=== PATIENT | female | born 1985 | race Caucasian/White ===

== ENCOUNTER 2019-09-02 16:48 | Emergency (ER) | payer MEDICARE, OTHER ==
[~2019-09-02] VITALS: Ht 149.9 cm; Wt 114.6 kg
[2019-09-02 17:00] VITALS: BP 122/89
[2019-09-02] MEDS ORDERED: ERYT1OIN6 OP (17:15)
--- NOTE | 2019-09-02 17:15 | PHYS DOC ---
General Adult EDM: Chief Complaint: EYE PROBLEMS HPI: HPI: 34-year-old female presents with left eye erythema and irritation. This started about 3 days ago. It is only in the left eye. The patient has had increasing purulent drainage despite using warm compresses. She is also tried some ciprofloxacin drops that she had leftover from treating previous styes. It has not improved. Patient has seasonal allergies but only her left eye is affected. She denies fever chills. [place] from [place] help [place] friend. Review of Systems: Review of Systems: Constitutional: Denies fever or chills Eyes: Irritated left eye HENT: Denies nasal congestion or sore throat Respiratory: Denies cough or shortness of breath Cardiovascular: Denies chest pain or edema GI: Denies abdominal pain, nausea, vomiting, bloody stools or diarrhea : Denies dysuria Musculoskeletal: Denies back pain or joint pain Integument: Denies rash Neurologic: Denies headache, focal weakness or sensory changes Endocrine: Denies polyuria or polydipsia Lymphatic: Denies swollen glands Psychiatric: Denies depression or anxiety Heart Score: Risk Factors: Risk Factors: DM, Current or recent (<one month) smoker, HTN, HLP, family history of CAD, obesity. Risk Scores: Score 0 - 3: 2.5% MACE over next 6 weeks - Discharge Home Score 4 - 6: 20.3% MACE over next 6 weeks - Admit for Clinical Observation Score 7 - 10: 72.7% MACE over next 6 weeks - Early Invasive Strategies Physical Exam: PE: Constitutional: Well developed, well nourished, no acute distress, non-toxic appearance. [] HENT: Normocephalic, atraumatic, bilateral external ears normal, oropharynx moist, no oral exudates, nose normal. [] Eyes: PERRLA, EOMI, conjunctiva right eye normal, left eye erythematous and with purulent discharge [] Neck: Normal range of motion, no tenderness, supple, no stridor. [] Cardiovascular:Heart rate regular rhythm, no murmur [] Lungs & Thorax: Bilateral breath sounds clear to auscultation [] Abdomen: Bowel sounds normal, soft, no tenderness, no masses, no pulsatile masses. [] Skin: Warm, dry, no erythema, no rash. [] Back: No tenderness, no CVA tenderness. [] Extremities: No tenderness, no cyanosis, no clubbing, ROM intact, no edema. [] Neurologic: Alert and oriented X 3, normal motor function, normal sensory function, no focal deficits noted. [] Psychologic: Affect normal, judgement normal, mood normal. [] EKG: EKG: [] Radiology/Procedures: Radiology/Procedures: [] Course & Med Decision Making: Course & Med Decision Making Pertinent Labs and Imaging studies reviewed. (See chart for details) The patient appears to have bacterial conjunctivitis. It is possible that it is resistant to the Cipro and that is why is not working. I will give her erythromycin ointment. This could also be viral and I have advised the patient this may be the case. She states verbal understanding. She will use erythromycin as prescribed. She is stable for discharge at this time. [] Dragon Disclaimer: Dragon Disclaimer: This electronic medical record was generated, in whole or in part, using a voice recognition dictation system. Departure Departure: Impression: Primary Impression: Bacterial conjunctivitis of left eye Disposition: HOME/RESIDENCE PRIOR TO ADM Condition: STABLE Referrals: PCP,NO (PCP) Patient Instructions: Bacterial Conjunctivitis, [id number] Scripts Erythromycin Base (Erythromycin) 1 Gm Oint...g. 1 GM OP TID for bacterial conjunctivitis for 7 Days, #1 MISC Prov: SADAF WILKINSON DO 09/02/19 Justification of Admission: Justification of Admission: Justification of Admission Dx: N/A SADAF WILKINSON DO Sep 02, 2019 17:15
== END 2019-09-02 17:17 | disposition home or self-care (01) ==
LOC: ER 16:48
DX: H10.89 Other conjunctivitis (principal); B99.9 Unspecified infectious disease
CPT/HCPCS: 99283

== ENCOUNTER 2019-09-03 23:36 | Emergency (ER) | payer MEDICARE, MEDICAID ==
[~2019-09-03] VITALS: Ht 149.9 cm; Wt 114.6 kg
[~2019-09-03 23:36] MED LIST: ERYT1OIN6 OP
[2019-09-04] MEDS ORDERED: METOCLOPRAMIDE HCL 10 MG/2 ML VIAL. IVP ONE (00:30)
[2019-09-04] MEDS ORDERED: diphenhydrAMINE 50 MG/ML VIAL IVP ONE (00:30)
[2019-09-04] MEDS ORDERED: IV NORMAL SALINE 1,000ML 1,000 ML IV ONE (00:30)
--- NOTE | 2019-09-04 00:38 | RAD ---
CT HEAD INDICATION: Severe headache since 1 day ago / Spl. Instructions: / History: COMPARISON: None Available. Exposure: One or more of the following individualized dose reduction techniques were utilized for this examination: 1. Automated exposure control 2. Adjustment of the mA and/or kV according to patient size 3. Use of iterative reconstruction technique TECHNIQUE: 5 mm contiguous axial images were obtained from the skull base to the vertex in both bone and soft tissue algorithm. FINDINGS: No abnormal attenuation within the brain parenchyma. No evidence of acute intracranial hemorrhage. No extra-axial fluid collections. No mass effect or midline shift. Ventricular size is appropriate. Basal cisterns are patent. No fractures identified.Bejarano-white differentiation is preserved.Globes and orbits are within normal limits. Paranasal sinuses and mastoid air cells are clear. IMPRESSION: No acute intracranial findings. Electronically signed by: Sergio Ascencio MD (09/04/2019 12:36 AM) [id number]
[2019-09-04 00:45] VITALS: BP 110/63
--- NOTE | 2019-09-04 00:58 | PHYS DOC ---
Past History Past Medical History: Anxiety, Asthma, Bipolar, Depression Additional Past Medical Histor: PTSD Past Surgical History: , Other Additional Past Surgical Histo: bilat carpal tunnel, right leg with rods and screws Alcohol Use: Rarely General Adult EDM: Chief Complaint: HEADACHE HPI: HPI: Patient is a 34-year-old female who presented to ER today for evaluation of headache, headache is throbbing in the back of her head started 2 days ago. Patient denies any injury. Patient denies neck pain, no fever. Patient called here and inform us that patient recently signed out AGAINST MEDICAL ADVICE at a rehab facility for cocaine and meth treatment. Patient denies ryder icidal ideation, denies homicidal ideation. Review of Systems: Review of Systems: Constitutional: Denies fever or chills Eyes: Denies change in visual acuity HENT: Denies nasal congestion or sore throat Respiratory: Denies cough or shortness of breath Cardiovascular: Denies chest pain or edema GI: Denies abdominal pain, nausea, vomiting, bloody stools or diarrhea : Denies dysuria Musculoskeletal: Denies back pain or joint pain Integument: Denies rash Neurologic: Positive for headache, no focal weakness or sensory changes Endocrine: Denies polyuria or polydipsia Lymphatic: Denies swollen glands Psychiatric: Denies depression or anxiety Heart Score: Risk Factors: Risk Factors: DM, Current or recent (<one month) smoker, HTN, HLP, family history of CAD, obesity. Risk Scores: Score 0 - 3: 2.5% MACE over next 6 weeks - Discharge Home Score 4 - 6: 20.3% MACE over next 6 weeks - Admit for Clinical Observation Score 7 - 10: 72.7% MACE over next 6 weeks - Early Invasive Strategies Current Medications: Current Meds: Current Medications Medications (Trade) Dose Ordered Sig/Frank Start Time Stop Time Status Last Admin Dose Admin Diphenhydramine HCl (Benadryl) 50 mg 1X ONCE 09/04/19 00:30 09/04/19 00:31 DC 09/04/19 00:23 50 MG Ketorolac Tromethamine (Toradol 30mg Vial) 30 mg 1X ONCE 09/04/19 01:00 09/04/19 01:01 09/04/19 00:54 30 MG Metoclopramide HCl (Reglan Vial) 10 mg 1X ONCE 09/04/19 00:30 09/04/19 00:31 DC 09/04/19 00:23 10 MG Sodium Chloride 1,000 ml @ 1,000 mls/hr 1X ONCE 09/04/19 00:30 09/04/19 01:29 09/04/19 00:23 1,000 MLS/HR Allergies: Allergies: Allergies Coded Allergies Type Severity Reaction Last Updated Verified No Known Drug Allergies 09/02/19 No Physical Exam: PE: Constitutional: Well developed, well nourished, no acute distress, non-toxic appearance. [] HENT: Normocephalic, atraumatic, bilateral external ears normal, oropharynx moist, no oral exudates, nose normal. [] Eyes: PERRLA, EOMI, conjunctiva normal, no discharge. [] Neck: Normal range of motion, no tenderness, supple, no stridor. [] Cardiovascular:Heart rate regular rhythm, no murmur [] Lungs & Thorax: Bilateral breath sounds clear to auscultation [] Abdomen: Bowel sounds normal, soft, no tenderness, no masses, no pulsatile masses. [] Skin: Warm, dry, no erythema, no rash. [] Back: No tenderness, no CVA tenderness. [] Extremities: No tenderness, no cyanosis, no clubbing, ROM intact, no edema. [] Neurologic: Alert and oriented X 3, normal motor function, normal sensory function, no focal deficits noted. [] Psychologic: Affect normal, judgement normal, mood normal. [] Current Patient Data: Vital Signs: Vital Signs Date Time Temp Pulse Resp B/P (MAP) Pulse Ox O2 Delivery O2 Flow Rate FiO2 09/04/19 00:45 84 20 110/63 (79) 98 Room Air 09/03/19 23:37 98.7 EKG: EKG: [] Radiology/Procedures: Radiology/Procedures: [][address] [address] IMAGING REPORT Signed PATIENT: DANNA CACERES ACCOUNT: [id number] : 1985 LOCATION: ER AGE: 34 SEX: F EXAM STATUS: REG ER ORD. PHYSICIAN: MUHAMMAD,PETER T DO REASON: Severe headache since 1 day ago PROCEDURE: CT HEAD WO CONTRAST CT HEAD INDICATION: Severe headache since 1 day ago / Spl. Instructions: / History: COMPARISON: None Available. Exposure: One or more of the following individualized dose reduction techniques were utilized for this examination: 1. Automated exposure control 2. Adjustment of the mA and/or kV according to patient size 3. Use of iterative reconstruction technique TECHNIQUE: 5 mm contiguous axial images were obtained from the skull base to the vertex in both bone and soft tissue algorithm. FINDINGS: No abnormal attenuation within the brain parenchyma. No evidence of acute intracranial hemorrhage. No extra-axial fluid collections. No mass effect or midline shift. Ventricular size is appropriate. Basal cisterns are patent. No fractures identified.Bejarano-white differentiation is preserved.Globes and orbits are within normal limits. Paranasal sinuses and mastoid air cells are clear. IMPRESSION: No acute intracranial findings. Electronically signed by: Sergio Ascencio MD (09/04/2019 12:36 AM) [id number] DICTATED AND SIGNED BY: SERGIO ASCENCIO MD DATE: 09/04/19 0036 CC: CINTHIA SUGGS; KAYDEN MUHAMMAD DO ~ Course & Med Decision Making: Course & Med Decision Making Pertinent Labs and Imaging studies reviewed. (See chart for details) Patient is a 34-year-old female who was evaluated in ER due to headache, CT scan her head did not show any acute problem. Patient was given medication in the ER and she feels much better. Patient will be discharged home. Dragon Disclaimer: Dragon Disclaimer: This electronic medical record was generated, in whole or in part, using a voice recognition dictation system. Departure Departure: Impression: Primary Impression: Headache Disposition: 01 HOME/RESIDENCE PRIOR TO ADM Condition: IMPROVED Referrals: PCPCINTHIA (PCP) please follow up with your doctor for outpatient evaluation. Patient Instructions: General Headache Without Cause Justification of Admission: Justification of Admission: Justification of Admission Dx: N/A KAYDEN MUHAMMAD DO Sep 04, 2019 00:58
[2019-09-04] MEDS ORDERED: KETOROLAC 30 MG/ML VIAL. IVP ONE (01:00)
== END 2019-09-04 01:10 | disposition home or self-care (01) ==
LOC: ER 23:36
DX: R51 Headache (principal); J45.909 Unspecified asthma, uncomplicated; F41.9 Anxiety disorder, unspecified; F31.9 Bipolar disorder, unspecified; F43.10 Post-traumatic stress disorder, unspecified
CPT/HCPCS: 70450; 96374; 96375; 99284; J1200; J1885; J2765; J7030

== ENCOUNTER 2019-09-30 14:18 | Emergency (ER) | payer MEDICARE, MEDICAID ==
[~2019-09-30] VITALS: Ht 149.9 cm; Wt 118.5 kg
[2019-09-30 14:27] VITALS: BP 165/70
[2019-09-30] MEDS ORDERED: PRED20TA PO (14:35)
[2019-09-30] MEDS ORDERED: ORPH-16 PO (14:35)
--- NOTE | 2019-09-30 14:35 | PHYS DOC ---
Past History Past Medical History: Anxiety, Asthma, Bipolar, Depression Additional Past Medical Histor: PTSD Past Surgical History: , Other Additional Past Surgical Histo: bilat carpal tunnel, right leg with rods and screws Alcohol Use: Rarely General Adult EDM: Chief Complaint: FOOT INJURY PAIN HPI: HPI: Patient is a [age] year old [sex] who presents with [] Review of Systems: Review of Systems: Constitutional: Denies fever or chills Eyes: Denies change in visual acuity HENT: Denies nasal congestion or sore throat Respiratory: Denies cough or shortness of breath Cardiovascular: Denies chest pain or edema GI: Denies abdominal pain, nausea, vomiting, bloody stools or diarrhea : Denies dysuria Musculoskeletal: Denies back pain or joint pain Integument: Denies rash Neurologic: Denies headache, focal weakness or sensory changes Endocrine: Denies polyuria or polydipsia Lymphatic: Denies swollen glands Psychiatric: Denies depression or anxiety Heart Score: Risk Factors: Risk Factors: DM, Current or recent (<one month) smoker, HTN, HLP, family history of CAD, obesity. Risk Scores: Score 0 - 3: 2.5% MACE over next 6 weeks - Discharge Home Score 4 - 6: 20.3% MACE over next 6 weeks - Admit for Clinical Observation Score 7 - 10: 72.7% MACE over next 6 weeks - Early Invasive Strategies Allergies: Allergies: Allergies Coded Allergies Type Severity Reaction Last Updated Verified No Known Drug Allergies 09/02/19 No Physical Exam: PE: Constitutional: Well developed, well nourished, no acute distress, non-toxic appearance. [] HENT: Normocephalic, atraumatic, bilateral external ears normal, oropharynx moist, no oral exudates, nose normal. [] Eyes: PERRLA, EOMI, conjunctiva normal, no discharge. [] Neck: Normal range of motion, no tenderness, supple, no stridor. [] Cardiovascular:Heart rate regular rhythm, no murmur [] Lungs & Thorax: Bilateral breath sounds clear to auscultation [] Abdomen: Bowel sounds normal, soft, no tenderness, no masses, no pulsatile masses. [] Skin: Warm, dry, no erythema, no rash. [] Back: No tenderness, no CVA tenderness. [] Extremities: No tenderness, no cyanosis, no clubbing, ROM intact, no edema. [] Neurologic: Alert and oriented X 3, normal motor function, normal sensory function, no focal deficits noted. [] Psychologic: Affect normal, judgement normal, mood normal. [] Current Patient Data: Vital Signs: Vital Signs Date Time Temp Pulse Resp B/P (MAP) Pulse Ox O2 Delivery O2 Flow Rate FiO2 09/30/19 14:27 98.2 104 16 165/70 (101) 98 Room Air EKG: EKG: [] Radiology/Procedures: Radiology/Procedures: [] Course & Med Decision Making: Course & Med Decision Making Pertinent Labs and Imaging studies reviewed. (See chart for details) [] Dragon Disclaimer: Dragon Disclaimer: This electronic medical record was generated, in whole or in part, using a voice recognition dictation system. Departure Departure: Impression: Primary Impression: Sciatica Qualified Codes: M54.31 - Sciatica, right side Disposition: HOME/RESIDENCE PRIOR TO ADM Condition: STABLE Referrals: PCP,NO (PCP) Patient Instructions: Sciatica, [id number] Scripts Prednisone (PREDNISONE) 20 Mg Tablet 2 TAB PO DAILY for Back pain, #8 TAB Start this prescription tomorrow, Tuesday10/01/19 Prov: LINN ROSALES DO 09/30/19 Orphenadrine Citrate (ORPHENADRINE CITRATE) 100 Mg Tablet.er 1 TAB PO BID PRN for MUSCLE PAIN, #14 TAB 0 Refills Prov: LINN ROSALES DO 09/30/19 Justification of Admission: Justification of Admission: Justification of Admission Dx: N/A LINN ROSALES DO Sep 30, 2019 14:35
[2019-09-30] MEDS ORDERED: DEXAMETHASONE 4 MG TABLET PO ONE (14:45)
[2019-09-30] MEDS ORDERED: ORPHENADRINE CITRATE 60 MG/2 ML VIAL. IM ONE (14:45)
== END 2019-09-30 14:45 | disposition home or self-care (01) ==
LOC: ER 14:18
DX: M54.31 Sciatica, right side (principal); F41.9 Anxiety disorder, unspecified; J45.909 Unspecified asthma, uncomplicated; F31.9 Bipolar disorder, unspecified; F43.10 Post-traumatic stress disorder, unspecified
CPT/HCPCS: 96372; 99283; J2360; J8540